=== PATIENT | female | born 1985 | race Two or more races ===

== ENCOUNTER 2016-08-02 10:46 | Emergency (ER) | payer SELFPAY ==
--- NOTE | 2016-08-02 11:04 | ER Document Report ---
ED General - General Stated Complaint: ALTERED MENTAL STATUS Mode of Arrival: Medic Information source: Law Enforcement, Emergency Med Personnel Cannot obtain history due to: Altered mental status Notes: Initially Kalee oreilly found running after female joggers yelling "lucila" repetitively , was brought in by EMS for altered mental status. Patient continues to be repetitive, provides no information - HPI Onset: Just prior to arrival Onset/Duration: Sudden Quality of pain: No pain Severity: Moderate Pain Level: Denies Associated symptoms: None Exacerbated by: Denies Relieved by: Denies Similar symptoms previously: No Recently seen / treated by doctor: No Past Medical History - Social History Smoking Status: Never Smoker Cigarette use (# per day): No Chew tobacco use (# tins/day): No Smoking Education Provided: No Family History: Reviewed & Not Pertinent Review of Systems - Review of Systems Notes: REVIEW OF SYSTEMS: Unable to fully assess due to patient's altered mental status CONSTITUTIONAL : Denies fever, chills, or sweats. Denies recent illness. EENT: Denies eye, ear, throat, or mouth pain or symptoms. Denies nasal or sinus congestion or discharge. Denies throat, tongue, or mouth swelling or difficulty swallowing. CARDIOVASCULAR: Denies chest pain. Denies palpitations or racing or irregular heart beat. Denies ankle edema. RESPIRATORY: Denies cough, cold, or chest congestion. Denies shortness of breath, difficulty breathing, or wheezing. GASTROINTESTINAL: Denies abdominal pain or distention. Denies nausea, vomiting , or diarrhea. Denies blood in vomitus, stools, or per rectum. Denies black, tarry stools. Denies constipation. GENITOURINARY: Denies difficulty urinating, painful urination, burning, frequency, blood in urine, or discharge. FEMALE GENITOURINARY: Denies vaginal bleeding, heavy or abnormal periods, irregular periods. Denies vaginal discharge or odor. MUSCULOSKELETAL: Denies back or neck pain or stiffness. Denies joint pain or swelling. SKIN: Denies rash, lesions or sores. HEMATOLOGIC : Denies easy bruising or bleeding. LYMPHATIC: Denies swollen, enlarged glands. NEUROLOGICAL: Denies confusion or altered mental status. Denies passing out or loss of consciousness. Denies dizziness or lightheadedness. Denies headache. Denies weakness or paralysis or loss of use of either side. Denies problems with gait or speech. Denies sensory loss, numbness, or tingling. Denies seizures. PSYCHIATRIC: Repetitive speech ALL OTHER SYSTEMS REVIEWED AND NEGATIVE. Dictation was performed using swabr voice recognition software PHYSICAL EXAMINATION: GENERAL: Well-appearing, patient repetitive speech HEAD: Atraumatic, normocephalic. EYES: Pupils equal round and reactive to light, extraocular movements intact, conjunctiva are normal. Initially reported as pinpoints by EMS ENT: Nares patent, oropharynx clear without exudates. Moist mucous membranes. NECK: Normal range of motion, supple without lymphadenopathy LUNGS: Breath sounds clear to auscultation bilaterally and equal. No wheezes rales or rhonchi. HEART: Tachycardic ABDOMEN: Soft, nontender, nondistended abdomen. No guarding, no rebound. No masses appreciated. Female : deferred Musculoskeletal: Normal range of motion, no pitting or edema. No cyanosis. NEUROLOGICAL: Initially does not follow commands PSYCH: Altered SKIN: Warm, Dry, normal turgor, no rashes or lesions noted. Physical Exam - Vital signs Vitals: Resp Pulse Ox 18 99 08/02/16 10:52 08/02/16 10:52 Course - Re-evaluation Re-evalutation: 08/02/16 11:52 Patient was immediately sent for CT of the head however in CAT scan she was throwing things and pulling at her IV site, she was given Haldol Ativan and Benadryl which helped calm her down for imaging to be performed to rule out an acute CVA. After patient did calm down I was able to speak with her, she was refusing to answer questions to nursing but I was able to obtain her date of name and address. Attempts are being made to locate family at this time 08/02/16 13:45 Patient is much, now after medications were given, she is noted to have a urinary tract infection however I do not believe this is the cause of the patient's behavior at this point, will keep for ivc since i have no family or explanation of behaviour but appears secondary to acute psychosis 08/02/16 18:02 I was made aware the patient's family was located, I spoke with patient's mother who is quite concerned regarding her presentation and a bruise on her daughter's arm. I explained to the mother in length that the patient had acute psychosis which was apparent based on her presentation her altered mental status lack of responding to appropriate questions and commands and the fact that she pulled out her own IV from her left antecubital and started throwing things at the nurses. Initially mother was upset and wanted to speak with multiple other staff members who collaborated with the facts of the case. I explained to the mother that the medications would not cause the patient actively she has, since she was already acting acutely psychotic prior to presentation to the emergency department. I explained that I do not know the specifics outside of the hospital while she was here patient was not oriented to person place or time, was not responding appropriately, and was emergently sent for a CT of the head which I needed to give her medication to perform appropriately to rule out any life-threatening strokes. After a long conversation mother is very pleased with the care we have provided her, I will allow her to take her daughter since she believes that she can handle her at home. Multiple staff members and myself have explained our concerns as well as our diagnosis - Vital Signs Vital signs: Temp Pulse Resp BP Pulse Ox 98.3 F 80 18 136/76 H 100 08/02/16 18:31 08/02/16 18:31 08/02/16 18:31 08/02/16 18:31 08/02/16 18:31 - Laboratory Result Diagrams: 08/02/16 11:00 08/02/16 11:50 Laboratory results interpreted by me: 08/02/16 08/02/16 11:50 13:00 Potassium 3.5 L Carbon Dioxide 19 L Urine Protein 100 H Urine Ketones 20 H Urine Blood SMALL H Urine Nitrite POSITIVE H Salicylates < 1.0 L Acetaminophen < 10 L Discharge - Discharge Clinical Impression: Acute psychosis UTI (urinary tract infection) Qualifiers: Urinary tract infection type: acute cystitis Hematuria presence: without hematuria Qualified Code(s): N30.00 - Acute cystitis without hematuria Condition: Stable Disposition: HOME, SELF-CARE Instructions: Urinary Tract Infection ([facility]) Additional Instructions: Follow up with your physician tomorrow for further care or return to the ED IMMEDIATELY if symptoms worsen or new concerns occur. If you cannot afford to follow up with your primary care physician a list of low cost clinics have been provided at the end of your discharge papers as well. Prescriptions: Ciprofloxacin HCl [Cipro 500 mg Tablet] 500 mg PO BID #10 tablet
[2016-08-02] MEDS ORDERED: HALOPERIDOL LACTATE INJ 5 MG/1 ML VIAL IV ONE (11:07)
[2016-08-02] MEDS ORDERED: HALOPERIDOL LACTATE INJ 5 MG/1 ML VIAL ONE (11:10)
[2016-08-02 11:14] LABS: ABSOLUTE LYMPHOCYTES (AUTO) 1.3 10^3/uL (0.5-4.7); ABSOLUTE MONOCYTES (AUTO) 0.6 10^3/uL (0.1-1.4); ABSOLUTE NEUT (AUTO) 3.6 10^3/uL (1.7-8.2); BASOPHILS % (AUTO) 0.6 % (0-2); EOSINOPHILS % (AUTO) 0.5 % (0-6); HEMATOCRIT 37.4 % (36.0-47.0); HEMOGLOBIN 12.8 g/dL (12.0-15.5); MEAN CORPUSCULAR HEMOGLOBIN 32.5 pg (27.0-33.4); MEAN CORPUSCULAR HGB CONC 34.4 g/dL (32.0-36.0); MEAN CORPUSCULAR VOLUME 95 fl (80-97); MONOCYTES % (AUTO) 10.9 % (3-13); RED BLOOD COUNT 3.95 10^6/uL (3.72-5.28); RED CELL DISTRIBUTION WIDTH 13.1 % (11.5-14.0); WHITE BLOOD COUNT 5.6 10^3/uL (4.0-10.5)
[2016-08-02] MEDS ORDERED: DIPHENHYDRAMINE HCL 50 MG/ML VIAL ONE (11:20)
[2016-08-02] MEDS ORDERED: LORAZEPAM INJ 2 MG/1 ML VIAL ONE (11:20)
[2016-08-02] MEDS ORDERED: DIPHENHYDRAMINE HCL 50 MG/ML VIAL IM ONE (11:54)
[2016-08-02] MEDS ORDERED: LORAZEPAM INJ 2 MG/1 ML VIAL IM ONE (11:54)
[2016-08-02 12:17] LABS: ALANINE AMINOTRANSFERASE 22 U/L (9-52); ALBUMIN 4.6 g/dL (3.5-5.0); ALCOHOL < 10 mg/dL (NONE DETECTED); ALKALINE PHOSPHATASE 62 U/L (38-126); ANION GAP 18 (5-19); ASPARTATE AMINO TRANSFERASE 26 U/L (14-36); BILIRUBIN,DIRECT 0.2 mg/dL (0.0-0.4); BILIRUBIN,TOTAL 1.2 mg/dL (0.2-1.3); BLOOD UREA NITROGEN 13 mg/dL (7-20); CALCIUM 9.5 mg/dL (8.4-10.2); CARBON DIOXIDE 19 mmol/L (22-30); CHLORIDE 106 mmol/L (98-107); GLUCOSE 107 mg/dL (75-110); POTASSIUM 3.5 mmol/L (3.6-5.0); SODIUM 142.5 mmol/L (137-145); TOTAL PROTEIN 7.6 g/dL (6.3-8.2)
[2016-08-02 13:44] LABS: APPEARANCE,URINE SLIGHTLY-CLOUDY; BILIRUBIN,URINE NEGATIVE (NEGATIVE); GLUCOSE, URINE NEGATIVE (NEGATIVE); KETONES,URINE 20 mg/dL (NEGATIVE); LEUKOCYTE ESTERASE,URINE NEGATIVE (NEGATIVE); NITRITE,URINE POSITIVE (NEGATIVE); PROTEIN,URINE 100 mg/dL (NEGATIVE); UROBILINOGEN,URINE NEGATIVE mg/dL (<2.0)
[2016-08-02] MEDS ORDERED: CIPROFLOXACIN HCL 500 MG TABLET PO ONE (13:46)
[2016-08-02 13:58] LABS: URINE BARBITURATES SCREEN NEGATIVE; URINE METHADONE SCREEN NEGATIVE; URINE OPIATES LOW NEGATIVE; URINE PHENCYCLIDINE SCREEN NEGATIVE
--- NOTE | 2016-08-02 18:04 | EKG REPORT ---
SEVERITY:- ABNORMAL ECG - SINUS TACHYCARDIA WITH IRREGULAR RATE 115-174 PROBABLE LVH WITH SECONDARY REPOL ABNRM LATERAL Q WAVES, PROBABLY NORMAL VARIATION ST DEPRESSION, CONSIDER ISCHEMIA, INF LEADS BORDERLINE PROLONGED QT INTERVAL : Confirmed by: Franklin Chavez MD 02-Aug-2016 18:04:03
[2016-08-02 18:36] VITALS: BP 136/76
--- NOTE | 2016-08-02 19:27 | PSYCHOLOGICAL NOTE ---
Psych Note - Psych Note Psych Note: Initially Kalee kelly found running after female joggers yelling "Remi" repetitively , was brought in by EMS for altered mental status. Patient continues to be repetitive, provides no information. Clinician was requested to assist with patient in CT; upon entering the room, the clinician observed the patient sitting up in the CT machine and attempting to move. Patient stated "Remi" multiple times and started to repeat in a lilo. Patient was not following requests from staff to lay back for a head CT. Patient proceeded to rip out her IV. Clinician moved up to the machine and attempted to engage the patient requesting patient's name, how old she was, and commenting on her nails asking where she got her nails done. Patient refused to engage with clinician and continued to repeat the lilo; "Remi." Clinician notes that patient would not cooperate with staff and medication was needed to complete the Head CT. At this time clinician will be unable to complete mental health evaluation because of patient's presentation in an altered mental state. Evaluation will occur at a later time. Patient was identified at [facility] Clinician was requested to come to assist attending nurse;patient's family is present and requesting information. Upon entering patient's room, the family started asked questions on what happened to the patient and how she came to [facility]. Patient's mother stated that this has never happened before and this morning when they started to worry that the patient had not gotten home she made flyers in an attempt to find the patient. She continued to state she found a gentlemen that recognized the patient from the flyer that told her the patient was seen possibly in an argument with a couple. Clinician explained to the family that anything occurring prior to arriving to [facility] staff here would be unable to attest to, that if the family wanted to know what occurred prior the first responders would have the information. The clinician explained that all the information she had was the patient was brought in as a Kalee Kelly, altered mental status. The patient's mother continued to question the patient's treatment while in the community praying and not bothering anyone. Patient is observed speaking over family members, recalling details not congruent to events occurring that clinician observed. Patient is agitated and started to recall events in the community. Patient stated that when one of the responders was standing over her, she saw 3 stars one on each shoulder and the badge on his chest. Patient then stated that she was in the middle of praying and was "only laying hands" on the signs of the school to pray for the schools. She stated that she was upset became she was being interrupted and started to continue making "symbolic" references with cars; the clinician was unable to follow since the patient's speech regressed to derailment and disorganized thought processes. Patient's mother states the patient was only praying and people got scared only because she said "Remi;" "she is prophetic." At this time the patient's mother requested medical information so clinician requested attending physician to assist. Patient continued to demonstrate agitation, pressured speech, tangential with moments of derailment thought processes, delusions of religiosity, with self reported visual hallucinations. 298.9 (F29) Unspecified Schizophrenia Spectrum and Other Psychotic Disorder Impression/Plan: Patient is recommended to rescind of IVC, patient's family states they will keep the patient safe. Patient will be supervised and both family and patient refuse mental health assistance. Clinician requested the family to return to the ED if symptoms worsen or patient continues to demonstrate behaviour not congruent to patient's normal disposition. Dr. Eduardo was consulted on the care and management of this patient; attending physician is in agreement with recommendations and disposition.
== END 2016-08-02 18:40 | disposition home or self-care (01) ==
LOC: EDBD → ER 10:46
DX: F23 Brief psychotic disorder (principal); N30.00 Acute cystitis without hematuria; R41.82 Altered mental status, unspecified
CPT/HCPCS: 93005; 99285; 96372; 96374; 96375; 36415; 87086; 80307 ×4; 84703; 85025; 87088; 80053; 81001; 87186; 70450; 93010; J1200; J1630; J2060